=== PATIENT | male | born 1970 | race Caucasian/White ===

== ENCOUNTER 2019-03-11 13:43 | Emergency (ER) | payer OTHER ==
[2019-03-11 13:59] VITALS: TEMP 98; BMI 40.4
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
[2019-03-11 15:26] VITALS: BP 133/83; PULSE 86
--- NOTE | 2019-03-12 15:28 | EKG ---
Test Reason : Blood Pressure : / mmHG Vent. Rate : 080 BPM Atrial Rate : 080 BPM P-R Int : 168 ms QRS Dur : 110 ms QT Int : 398 ms P-R-T Axes : 043 089 054 degrees QTc Int : 459 ms NORMAL SINUS RHYTHM NORMAL ECG NO PREVIOUS ECGS AVAILABLE Confirmed by MD JULIANA, DAVIDE ([id number]) on 03/12/2019 3:28:21 PM Referred By: Confirmed By:DAVIDE ANDREWS MD
== END 2019-03-11 15:51 | disposition home or self-care (01) ==
LOC: JER 13:43
DX: M62.838 Other muscle spasm (principal); V43.52XA Car driver injured in collision with other type car in traffic accident, initial encounter; Y92.414 Local residential or business street as the place of occurrence of the external cause; Y93.89 Activity, other specified; Y99.8 Other external cause status
CPT/HCPCS: 73000-TC-RT-FY; 73030-TC-RT-FY; 93005; 93010; 99282-25

== ENCOUNTER 2020-02-01 13:11 | Emergency (ER) | payer OTHER ==
[2020-02-01 13:28] VITALS: BP 136/82; PULSE 110; TEMP 100.5; BMI 39.9
[2020-02-01] MEDS ORDERED: ACETAMINOPHEN 500 MG TABLET (FP) PO ONE (14:09)
[2020-02-01] MEDS ORDERED: ACETAMINOPHEN 500 MG TABLET (FP) ONE (14:31)
== END 2020-02-01 15:39 | disposition home or self-care (01) ==
LOC: JER 13:11
DX: U07.1 COVID-19 (principal)
CPT/HCPCS: 71045-TC-FY; 87804; 99284-25; C9803; U0003

== ENCOUNTER 2022-01-20 04:38 | Day surgery (SDC) | payer OTHER ==
[2022-01-16 09:42] VITALS: BMI 40.8
[2022-01-20 10:16] VITALS: TEMP 97.5
[2022-01-20 11:23] VITALS: RESP 16
[2022-01-20 12:57] VITALS: BP 103/65; PULSE 63
== END 2022-01-20 11:00 | disposition home or self-care (01) ==
LOC: JASU-ENDO 04:38
PROVIDERS: ATTEND Internal Medicine Gastroenterology
PROC: 0D7L8DZ Dilation of Transverse Colon with Intraluminal Device, Via Natural or Artificial Opening Endoscopic (ICD-10-PCS; 2022-01-20)
PROC: 0D7K8DZ Dilation of Ascending Colon with Intraluminal Device, Via Natural or Artificial Opening Endoscopic (ICD-10-PCS; principal; 2022-01-20 09:15)
DX: Z12.11 Encounter for screening for malignant neoplasm of colon (principal); D12.2 Benign neoplasm of ascending colon; K63.5 Polyp of colon; K57.30 Diverticulosis of large intestine without perforation or abscess without bleeding; K64.8 Other hemorrhoids; I10 Essential (primary) hypertension
CPT/HCPCS: 88305-TC

== ENCOUNTER 2022-02-06 15:04 | Emergency (ER) | payer OTHER ==
[2022-02-06 15:32] VITALS: BP 126/81; PULSE 112; RESP 16; TEMP 100.5; BMI 43.6
[2022-02-06] MEDS ORDERED: IBUPROFEN 600 MG TABLET (FP) PO ONE ×2 (16:38→16:39)
== END 2022-02-06 16:57 | disposition home or self-care (01) ==
LOC: JER 15:04
DX: J06.9 Acute upper respiratory infection, unspecified (principal)
CPT/HCPCS: 0241U-QW; 99283-25